=== PATIENT | female | born 1955 | race Caucasian/White ===

== ENCOUNTER 2021-06-03 03:13 | Emergency (ER) | payer MEDICARE, OTHER, SELFPAY ==
[2021-06-03 03:21] VITALS: BP 154/77; PULSE 82; RESP 18; TEMP 36.6; O2SAT 100
--- NOTE | 2021-06-03 04:07 | ED.WOUNDLAC ---
HPI - Wound/Laceration General Chief Complaint: Wound/Laceration Stated Complaint: infected flea bites Time Seen by Provider: 06/03/21 03:23 History of Present Illness HPI narrative: Patient is a 66-year-old female who presents ER with concern for infected bug bite. Patient's dog had fleas and has been treated. They then bit her legs. She developed redness around several areas of her calves. She had a blister in her right calf that has popped and since started to heal. She has developed leg to the left lower mercer she is concerned it may be infected. No fevers or chills or sweats. Nontender but has mild pruritus. Related Data Home Medications Medication Instructions Recorded Confirmed triamcinolone acetonide applic TOPICAL 06/03/21 Allergies Allergy/AdvReac Type Severity Reaction Status Date / Time penicillin G Allergy Mild Unknown Verified 06/03/21 03:55 amoxicillin Allergy Unknown Unknown Verified 06/03/21 03:55 cephalexin Allergy Unknown Unknown Verified 06/03/21 03:55 clarithromycin Allergy Unknown Unknown Verified 06/03/21 03:55 erythromycin base Allergy Unknown Unknown Verified 06/03/21 03:55 Penicillins Allergy Unknown Unknown Verified 06/03/21 03:55 tetracycline Allergy Unknown Unknown Verified 06/03/21 03:55 CEPHALEXIN MONOHYDRATE Allergy Mild Unknown Uncoded 06/03/21 03:55 CILLINS Allergy Mild Unknown Uncoded 06/03/21 03:55 MYCINS Allergy Mild Unknown Uncoded 06/03/21 03:55 Review of Systems Constitutional: Constitutional: Denies chills, Denies fever(s) and Denies weakness Musculoskeletal: Musculoskeletal: Denies joint swelling and Denies muscle cramps Integumentary/Breasts: Skin/Breast: Reports pruritus, Reports erythema and Reports rash PMFSH Past Medical History Medical History (Updated 06/03/21 @ 04:26 by Kilo Medina MD) Healthy female adult Surgical History Surgical History (Updated 06/03/21 @ 04:26 by Kilo Medina MD) History of repair of hiatal hernia Family History Family History (Updated 04/13/10 @ 10:51 by DOCTOR UNKNOWN) Other Diabetes mellitus Family history of arthritis Hypertension Social History Social History Smoking status: Never smoker Alcohol intake: never Gender identity (if verbalized by the patient): Female Sexual Orientation (if Verbalized by the Patient): Straight or Heterosexual Exam Narrative: GENERAL: Well-appearing, well-nourished, and in no acute distress. HEAD: Normocephalic, atraumatic. EXTREMITIES: Normal range of motion. No edema. SKIN: Warm, dry. Dermatitis from bug bites in bilateral lower extremities. Left lower extremity with a bullae that is slightly larger than 1 cm without pus or cellulitis sandpaperlike rash NEURO: Alert and oriented x3. PSYCH: Normal mood and affect. Course Course Emergency Course: Discussed treatment plan. Discharge home. Vital Signs Vital signs: Vital Signs Temperature 97.8 F 06/03/21 03:21 Pulse Rate 82 06/03/21 03:21 Respiratory Rate 18 06/03/21 03:21 Blood Pressure 154/77 H 06/03/21 03:21 Pulse Oximetry 100 06/03/21 03:21 Temperature 97.8 F 06/03/21 03:21 Pulse Rate 82 06/03/21 03:21 Respiratory Rate 18 06/03/21 03:21 Blood Pressure 154/77 H 06/03/21 03:21 Pulse Oximetry 100 06/03/21 03:21 Discharge Plan Discharge Clinical Impression: Bullous eruption, localized Patient Disposition: Home, Self-Care Condition: Stable Instructions: Antibiotic Form, Insect Bite or Sting (ED) Additional Instructions: You are having a reaction to a bug bite that is formed a blister/bullae. Continue to use the steroids prescribed by your primary care physician. Return the ER if you have fever over 100.4 ?F, you have severe pain in your leg, or have additional concerns. Prescriptions: No Action triamcinolone acetonide 0.1 % cream TOPICAL RF: 0 Follow-up/Referrals: PHYSICIAN NOT ON STAFF,NONSTAFF [Primary Care Provider] - 1 Week
== END 2021-06-03 04:18 | disposition home or self-care (01) ==
PROVIDERS: Emergency Provider Emergency Medicine
DX: S80.861A Insect bite (nonvenomous), right lower leg, initial encounter (principal); L14 Bullous disorders in diseases classified elsewhere; W57.XXXA Bitten or stung by nonvenomous insect and other nonvenomous arthropods, initial encounter
CPT/HCPCS: 99282

== ENCOUNTER 2021-06-24 14:02 | Emergency (ER) | payer MEDICARE, OTHER, SELFPAY ==
[2021-06-24 14:26] VITALS: BP 122/68; PULSE 97; RESP 16; TEMP 36.8; O2SAT 98
[2021-06-24 15:39] VITALS: BP 122/68; PULSE 97; RESP 18; TEMP 36.7; O2SAT 98
--- NOTE | 2021-06-24 17:02 | ED.GENADULT ---
HPI - General Adult General Chief complaint: Wound/Laceration Stated complaint: right arm wound Time Seen by Provider: 06/24/21 15:54 Source: patient Mode of arrival: ambulatory Limitations: no limitations History of Present Illness HPI narrative: Patient presents with chief complaint of suspected foreign body to right forearm. Patient states that she was out working in the yard and gardening which she is and she believes a piece is inserted still under her skin. Patient reports she has been trying to pick at the area without success. Patient reports rash around the area with itching. Patient denies any other injuries or concerns Related Data Home Medications Medication Instructions Recorded Confirmed triamcinolone acetonide applic TOPICAL 06/03/21 Allergies Allergy/AdvReac Type Severity Reaction Status Date / Time penicillin G Allergy Mild Unknown Verified 06/03/21 03:55 amoxicillin Allergy Unknown Unknown Verified 06/03/21 03:55 cephalexin Allergy Unknown Unknown Verified 06/03/21 03:55 clarithromycin Allergy Unknown Unknown Verified 06/03/21 03:55 erythromycin base Allergy Unknown Unknown Verified 06/03/21 03:55 Penicillins Allergy Unknown Unknown Verified 06/03/21 03:55 tetracycline Allergy Unknown Unknown Verified 06/03/21 03:55 CEPHALEXIN MONOHYDRATE Allergy Mild Unknown Uncoded 06/03/21 03:55 CILLINS Allergy Mild Unknown Uncoded 06/03/21 03:55 MYCINS Allergy Mild Unknown Uncoded 06/03/21 03:55 Review of Systems Review of Systems: CONSTITUTIONAL: Denies fever, chills, or sweats. EYES: Denies visual changes, redness, or discharge. ENT: Denies rhinorrhea, congestion, sore throat, or otalgia. CARDIOVASCULAR: Denies chest pain, palpitations, or edema. RESPIRATORY: Denies cough or dyspnea. GASTROINTESTINAL: Denies abdominal pain, nausea, vomiting, or diarrhea. GENITOURINARY: Denies dysuria or hematuria. SKIN: Reports rash and suspected foreign body. MUSCULOSKELETAL: Denies back pain, joint pain, or myalgia. NEUROLOGIC: Denies headache, numbness, dizziness, or weakness. PSYCHIATRIC: Denies anxiety or depression. [facility] Past Medical History Medical History (Updated 06/24/21 @ 17:27 by Apoorva Millan PA-C) Healthy female adult Surgical History Surgical History (Updated 06/03/21 @ 04:26 by Kilo Medina MD) History of repair of hiatal hernia Family History Family History (Updated 04/13/10 @ 10:51 by DOCTOR UNKNOWN) Other Diabetes mellitus Family history of arthritis Hypertension Social History Social History Smoking status: Never smoker Alcohol intake: never Gender identity (if verbalized by the patient): Female Sexual Orientation (if Verbalized by the Patient): Straight or Heterosexual Exam Narrative: GENERAL: Well-appearing, well-nourished, and in no acute distress. HEAD: Normocephalic, atraumatic. EYES: PERRLA and EOMI. CHEST: Clear to auscultation. No respiratory distress. No wheezes rales or rhonchi EXTREMITIES: Normal range of motion. No edema. SKIN: Warm, dry, no rash. NEURO: No focal deficits. Alert and oriented x3. PSYCH: Normal mood and affect. Course Vital Signs Vital signs: Vital Signs Temperature 98.3 F 06/24/21 14:26 Pulse Rate 97 06/24/21 14:26 Respiratory Rate 16 06/24/21 14:26 Blood Pressure 122/68 06/24/21 14:26 Pulse Oximetry 98 06/24/21 14:26 Temperature 98.0 F 06/24/21 15:39 Pulse Rate 97 06/24/21 15:39 Respiratory Rate 18 06/24/21 15:39 Blood Pressure 122/68 06/24/21 15:39 Pulse Oximetry 98 06/24/21 15:39 Procedures Foreign Body Removal Foreign Body #1: Site: right and upper extremity Description of foreign body: other (folliage) Sedation/Analgesia: other (lidocaine 1ml) Technique: incision made to facilitate removal Confirmed by:: direct visualization Complications: none Post-procedure exam: awake, alert Foreign Body Removal Narrative: folliage was
[2021-06-24] MEDS: LIDOCAINE/EPINEPHRINE 0.5%/1:200,000 50 ML VIAL (17:20)
== END 2021-06-24 18:01 | disposition home or self-care (01) ==
PROVIDERS: Emergency Provider Emergency Medicine
DX: S50.851A Superficial foreign body of right forearm, initial encounter (principal); W45.8XXA Other foreign body or object entering through skin, initial encounter; Y93.H2 Activity, gardening and landscaping
CPT/HCPCS: 10120; 99282

== ENCOUNTER 2025-05-26 17:31 | Emergency (ER) | payer MEDICARE, SELFPAY ==
--- NOTE | ~2025-05-26 | XR_ITS ---
EXAM: XR wrist LT min 3V DATE: 05/26/2025 17:59 HISTORY: fall . COMPARISON: None available. FINDINGS: Normal mineralization. No fracture or dislocation. No lytic or blastic lesion. Mild scatte red degenerative change. No erosion or periosteal change. Soft tissues within normal limits. IMPRESSION: No acute osseous finding in the left wrist. Reviewed, dictated and finalized at location K.
--- NOTE | ~2025-05-26 | XR_ITS ---
EXAM: XR knee RT min 4V DATE: 05/26/2025 17:59 HISTORY: fall . COMPARISON: 06/27/2010. FINDINGS: Osteopenia. No fracture or dislocation. No lytic or blastic lesion. Moderate degenerative change in the right knee. No erosion or periosteal change. Soft tissues within normal limits. IMPRESSION: No acute osseous finding in the right knee. Reviewed, dictated and finalized at location K.
--- OUTSIDE RECORDS SUMMARY | 2025-05-26 17:33 | XMS_ITS | Continuity of Care Document ---
Author Organization [facility] Address [address] [place] [address] [address] [place] [address] Phone Care Team Providers Care Straddle Bug Operator Name Role Phone Brooks OD, Alfredo Unavailable Unavailable Procedures Procedure Date Contact Lens Hydrophilic, Spherical [facility] Medical Contact Lens/es Other Type [facility] [employer] Eye Exam & Treatment Refraction CL Replacement - Vist[employer] Disp W/BW Soft [facility] Medical CL Replacement - Vistak[employer] Disp W/BW Soft [facility] Eye Exam & Treatment Refraction Office/outpatient Visit, Est Eye Exam Established Pt CL Replacement - [employer] Disp W/BW Soft [facility] Medical Eye Exam & Treatment Refraction CL Replacement - Vistak[employer] Disp W/BW Soft [facility] Advance Directives Directive Yes / No Effective Date File Name No Information Encounters Encounter Description Practice Location Reason(s) For Visit Diagnoses Date Provider Providers Copied on Encounter [facility], [address] [place] [address] [address], [place], [place], [id number], [place] tel:[phone] [facility] No Information 2-201 0 Brooks OD Alfredo. [address] , [address], [place], [address], [place]. tel:[phone] [facility], [address] [place] [address] [address], [place], [place], [id number], [place] tel:[phone] [facility] [place] No Information Dec-0 1-200 9 Brooks OD Alfredo. [address] [facility] , [address], [place], [place], [facility], [place]. tel:[phone] [facility], [address] [place] [address] [address], [place], [place], [id number], [place] tel:[phone] [facility] No Information Nov-0 3-200 9 Brooks OD Alfredo. [address] , [address], [place], [place], [facility], [place]. tel:[phone] [facility], [address] [place] [address] [address], [place], [place], [id number], [place] tel:[phone] [facility] [place] No Information May-0 1-200 9 Brooks OD Alfredo. [address] , [address], [place], [place], [facility], [place]. tel:[phone] [facility], [address] [place] [address] [address], [place], [place], [id number], [place] tel:[phone] [facility] No Information Oct-3 0-200 8 Brooks OD Alfredo. [address] [facility] , [address], [place], [facility], [place]. tel:[phone] [facility], [address] [place] [address] [address], [place], [place], [id number], [place] tel:[phone] [facility] [place] No Information Oct-2 1-200 8 Brooks OD Alfredo. [address] [facility] , [address], [place], [address], [place]. tel:[phone] Office/outpat ient Visit, Est [facility], [address] [place] [address] [address], [place], [place], [id number], [place] tel:[phone] [facility] [place] No Information Oct-2 0-200 7 Brooks OD Alfredo. [facility] , [address], [place], [place], [facility], . tel:[phone] [facility], [address] [place] [address] [address], [place], [place], [id number], tel:[phone] [facility] [place] No Information Oct-0 8-200 7 Doisy Edward. [facility] , [address], [place], [facility], [place]. tel:[phone] [facility], [address] [place] [address] [address], [place], [place], [id number], tel:[phone] [facility] No Information Oct-0 4-200 7 Brooks OD Alfredo. [facility] , [address], [place], [facility], [place]. tel:[phone] [facility], [address] [place] [address] [address], [place], [place], [id number], [place] tel:[phone] [facility] No Information Sep-2 4-200 7 Brooks OD Alfredo. [facility] , [address], [place], [address], . tel:[phone] [facility], [address] [place] [address] [address], [place], [place], [id number], tel:[phone] [facility] [place] No Information Latrell-0 8-200 7 Brooks OD Alfredo. [address] [place], [place] [address]ate [place] , [address], [place], [address], . tel:[phone] Family History Family Member Type Diagnosis Age At Onset No Information Payers Payer name Insurance type Covered constitution party ID Authoriza tion(s) No Information Social History Type Description Quantity Date Captured Comments Sex Female Smoking Status No Information Chief Complaint And Reason For Visit No Information Reason For Referral Reason For Referral No Information History Of Present Illness Encounter Date Complaint History Of Prese nt Illness No Information Functional Status Date Functional Assessmen t No Information Instructions Date Instruction Additional Infor mation No Information Assessments Type Assessment Date No Information Patient Care Teams Name Effective Dates (start - stop) Status Members No Information
--- OUTSIDE RECORDS SUMMARY | 2025-05-26 17:33 | XMS_ITS | Clinical Summary ---
Author Organization [facility] [address] Address [address] [place] [address] Care Team Providers Care Laboratory Technical Specialist Name Role Phone Jacquelyn Hernández MD Unavailable [phone] Tremayne Cross MD Primary Care Provider [phone] Source Comments [facility],non-owned Affiliates and Associated Physician Practices is amultiple site organization consisting of ambulatory clinics and hospital sitesin [place], [place], [place] and [place]. This disclosure is being madepursuant to the Care Everywhere program and may not contain all information available regarding this patient. Last updated 18.[facility] Allergies Active Allergy Reactions Criticality Noted Date Comments Clarithromycin Vomiting 03/04/2017 Cephalexin Rash Medium Erythromycin 03/04/2017 Penicillins Urticaria Medium 03/04/2017 Tetracycline 06/06/2017 Medications * Be aware that medications may not be up to date on this document. Alwaysverify current medications with the patient. ibuprofen (ADVIL) 200 MG capsule Take 200 mg by mouth 4 times daily as needed for Pain Active Acetaminophen (TYLENOL) 325 MG CAPS Active estradiol (ESTRACE VAGINAL) 0.1 MG/GM vaginal creamIndication s:Vulvovaginal Atrophy Apply 1 gram vaginally at bedtime for 21 days, then transition to twice weekly use. 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); Vaginal atrophy 03/23/2025 Travel 03/18/2025 Telephone [facility] [address] [place] [address] [place] [phone] Babak Bravo MD Reminder Call (03/23/25 appt) from Last 3 Months Family History Medical History Relation Name Comments CAD (Coronary Artery Disease) Father Diabetes - Type 2 Father Hypertension Father CVA Mother Diabetes - Type 2 Mother High Cholesterol Mother Hypertension Mother Osteoporosis Mother Relation Name Status Comments Father Mother Social History Tobacco Use Types Packs/Day Years Used Date Smoking Tobacco: Never Smokeless Tobacco: Never Tobacco Cessation:Counseling Given: Not Answered Alcohol Use Standard Drinks/Week Comments Not Currently 0 (1 standard drink = 0.6 oz pur e alcohol) PHQ-2 Answer Date Recorded Patient Health Questionnaire-2 Score 0 04/13/2025 Comments No Sex and Gender Information Value Date Recorded Sex Assigned at Not on file Legal Sex Female 3:22 PM CDT Gender Identity Not on file Sexual Orientation Not on file Last Filed Vital Signs Vital Sign Reading Time Taken Comments Blood Pressure 132/70 04/13/2025 1:10 PM CDT Pulse 78 12/23/2019 9:02 AM CDT Temperature 36.9 C (98.5 F) 12/23/2019 9:02 AM CDT Respiratory Rate 17 12/23/2019 9:02 AM CDT Oxygen Saturation 98% 12/23/2019 9:02 AM CDT Inhaled Oxygen Concentration - - Weight 69.9 kg (154 lb) 04/13/2025 1:10 PM CDT Height 157.5 cm (5' 2) 04/13/2025 1:10 PM CDT Body Mass Index 28.17 04/13/2025 1:10 PM CDT Plan of Treatment Upcoming Encounters Date Type Department Care Team (Late st Contact Info) Description 10/19/2025 10:45 AM GAMING DIRECTOR Office Visit [facility] [address] [place] [address] Babak Bravo MD [address] [facility] [address] [place] [address] Health Maintenance Due Date Last Done Comments BONE DENSITY TESTING 1954 COLOGUARD (AGES 45-75) - COLON CA SCREENING 1954 COLON MONITORING 1954 COLONOSCOPY - COLON CA SCREENING 1954 CT COLONOGRAPHY - COLON CA SCREENING 1954 Colorectal Cancer Screening 1954 FIT - COLON CA SCREENING 1954 FLEX SIG - COLON CA SCREENING 1954 LIPID TESTING 1954 MAMMOGRAM 1954 HEPATITIS C SCREENING 03/31/1972 DTAP/TDAP/TD VACCINES (1 - Tdap) 1973 PNEUMOCOCCAL VACCINE 50+ (1 of 1 - PCV) 2004 ZOSTER VACCINE (1 of 2) 2004 MEDICARE AWV CALENDAR YEAR 2024 COVID-19 VACCINE ( season) 2025 08/27/2024, 08/22/2022, 05/01/2022, Additional history exists SCREENING FOR DIABETES 03/23/2025 INFLUENZA VACCINE (#1) 2025 , 10/18/2023, 08/22/2022, Additional history exists Respiratory Syncytial Virus (RSV) Vaccine Pt: or over 60 yrs (1 - 1-dose 75+ series) 2029 DEPRESSION SCREENING Completed 03/23/2025 HEPATITIS B VACCINE Aged Out No longe r eligible based on patient's age to complete this topic HIB VACCINE Aged Out No longer eligi ble based on patient's age to complete this topic HPV VACCINE Aged Out No longer eligi ble based on patient's age to complete this topic MENINGOCOCCAL (Group B) VACCINE SHARED DECISION-MAKING Aged Out No longer eligible based on patient's age to complete this topic MENINGOCOCCAL GROUPS A/C/Y/W VACCINE Aged Out No longer eligible based on patient's age to complete this topic Insurance MEDICARE [facility] MANAGED MEDICARE ADV [facility] MANAGED MEDICARE ADV Care Teams Laboratory Technical Specialist Relationship Specialty Start Date End Date Tremayne Cross MD [address] [place] [address] [address] [place] [phone] PCP - General Internal Medicine 03/23/25 Jacquelyn Hernández MD [address] [place] [address] Family Medicine 06/06/17
[2025-05-26 17:41] VITALS: BP 145/88; PULSE 89; RESP 16; TEMP 36.1; O2SAT 97
--- NOTE | 2025-05-26 22:05 | ED_ITS ---
HPI - Fall General Chief Complaint: Fall Stated Complaint: fall, L wrist and R knee pain Time Seen by Provider: 05/26/25 21:46 Source: patient Mode of arrival: ambulatory Limitations: no limitations History of Present Illness HPI Narrative: Patient is a 70-year-old female who presents the ED with report of a fall. Patient reports she tripped and fell forward, attempting to catch herself with her arms. She landed onto her right knee. Complains of pain to her right knee and left wrist. Is able to ambulate, but has pain with this. Has not taken anything for pain. Denies any head injury or LOC. Denies numbness. Denies neck or back pain. Related Data Home Medications ?Medication ?Instructions ?Recorded ?Confirmed ?Last Taken ?Type No Home Medications 05/23/23 05/23/23 Unknown History Allergies Allergy/AdvReac Type Severity Reaction Status Date / Time penicillin G Allergy Mild Unknown Verified 05/26/25 17:42 amoxicillin Allergy Unknown Unknown Verified 05/26/25 17:42 cephalexin Allergy Unknown Unknown Verified 05/26/25 17:42 clarithromycin Allergy Unknown Unknown Verified 05/26/25 17:42 erythromycin base Allergy Unknown Unknown Verified 05/26/25 17:42 Penicillins Allergy Unknown Unknown Verified 05/26/25 17:42 tetracycline Allergy Unknown Unknown Verified 05/26/25 17:42 CEPHALEXIN MONOHYDRATE Allergy Mild Unknown Uncoded 05/26/25 17:42 CILLINS Allergy Mild Unknown Uncoded 05/26/25 17:42 MYCINS Allergy Mild Unknown Uncoded 05/26/25 17:42 Review of Systems Review of Systems: All systems reviewed & are unremarkable except as noted in HPI. All systems reviewed & are unremarkable except as noted in HPI and below PMFSH Past Medical History Medical History GERD (gastroesophageal reflux disease) Allergies Lipid screening Encounter for other general examination Breast screening Impacted cerumen of left ear Healthy female adult Surgical History Surgical History H/O cataract removal with insertion of prosthetic lens (~2005) and 2016 H/O oral surgery (~1994) History of hysterectomy (~1991) History of repair of hiatal hernia Family History Family History Father Asthma Diabetes mellitus Heart disease Hypertension Mother Diabetes mellitus Grandparent Hypertension Cancer Other Family history of arthritis Social History Social History Social History: Caffeine- soda/tea Smoking status: Never smoker Alcohol intake: never Substance use: never Substance use type: does not use Lack of Transportation: YES Lack of Food: Never True Current Housing: I Have Housing Concerned About Future Housing: No Difficulty Paying Gas/Electric Bills: No Difficulty Paying for Meds: No Currently Unemployed: No Education: Master's Degree or Higher Difficulty w/ Childcare or Family Care: No Living arrangements: alone Gender identity (if verbalized by the patient): Female Sexual Orientation (if Verbalized by the Patient): Straight or Heterosexual Exam Narrative: GENERAL: Well appearing, well-nourished, non-toxic, in no acute distress. HEAD: Normocephalic, atraumatic. RESPIRATORY: Airway patent, respirations nonlabored. CARDIOVASCULAR: Regular rate and rhythm without murmurs, rubs, or gallops. Peripheral pulses intact and easily palpable. MUSCULOSKELETAL: Moves all extremities. No gross deformities. Mild tenderness palpation over L distal ulnar region, L carpal bones. Mild TTP over R lateral anterior knee. No significant swelling or bruising. Sensation intact. No calf tenderness or swelling. SKIN: Warm, dry, normal color. NEURO: A&O X3. Speech clear. Cranial nerves II-XII grossly intact. Steady gait. No ataxic movements. PSYCHIATRIC: Appropriate mood and affect. Normal interaction. Course Vital Signs Vital signs: Vital Signs Temperature 97.0 F L 05/26/25 17:41 Pulse Rate 89 05/26/25 17:41 Respiratory Rate 16 05/26/25 17:41 Blood Pressure 145/88 H 05/26/25 17:41 Pulse Oximetry 97 05/26/25 17:41 Temperature 97.0 F L 05/26/25 17:41 Pulse Rate 89 05/26/25 17:41 Respiratory Rate 16 05/26/25 17:41 Blood Pressure 145/88 H 05/26/25 17:41 Pulse Oximetry 97 05/26/25 17:41 MDM - Fall MDM Narrative Medical decision making narrative: Patient presented to ED status post ground level mechanical fall, pain to left wrist, right knee. Denies head injury or LOC. Denies any other areas of pain. Neurovascularly intact. Vital signs are stable. Patient in no acute distress. X-ray of left wrist and right knee both negative for acute fracture. No joint effusion. Patient updated on imaging results, likelihood of wrist/knee sprain. Bobby bandage for right knee. Discussed rice therapy, strict return precautions. Declined pain medication in the ED. patient safe for discharge home. Discharged in stable condition. Medical Records Attestation: I reviewed the patient's medical records. Imaging Data Attestation: I personally reviewed and interpreted this imaging study as follows: Radiologist's impression: ITS Impressions Knee X-Ray 05/26/25 18:21 IMPRESSION: No acute osseous finding in the right knee. Wrist X-Ray 05/26/25 18:24 IMPRESSION: No acute osseous finding in the left wrist. Discharge Plan Discharge Clinical Impression: Fall from ground level Strain of left wrist Qualifiers: Encounter type: initial encounter Qualified Code(s): S66.912A - Strain of unspecified muscle, fascia and tendon at wrist and hand level, left hand, initial encounter Sprain of right knee Qualifiers: Encounter type: initial encounter Involved ligament of knee: unspecified ligament Qualified Code(s): S83.91XA - Sprain of unspecified site of right knee, initial encounter Patient Disposition: Home Condition: Stable Instructions: Antibiotic Form, Knee Sprain (ED), P.R.I.C.E. Treatment (ED), Wrist Sprain (ED) Additional Instructions: Recommend rest, ice to areas pain, elevation of extremities. Recommend Tylenol/ibuprofen as needed for pain. Bobby bandage for compression and support. Follow-up with your primary care doctor for further evaluation if needed. Return to the ED if you experience worsening or severe pain, recurrent fall or injury, numbness, severe swelling, or any other symptoms of concern. Patient Language: South [place]ese Prescriptions: No Action No Home Medications Follow-up/Referrals: PHYSICIAN NOT ON STAFF,NONSTAFF [Primary Care Provider] - Time of Disposition: 22:07
--- OUTSIDE RECORDS SUMMARY | 2025-05-26 22:57 | XMS_ITS | Clinical Summary ---
Author Organization [facility] Address [address] [place] [address] Care Team Providers Care Water Resource Project Manager Name Role Phone Jacquelyn Hernández MD Unavailable [phone] Tremayne Cross MD Primary Care Provider [phone] Source Comments [facility],non-owned Affiliates and Associated Physician Practices is amultiple site organization consisting of ambulatory clinics and hospital sitesin [place], [place], [place] and [place]. This disclosure is being madepursuant to the Care Everywhere program and may not contain all information available regarding this patient. 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); Vaginal atrophy 03/23/2025 Travel 03/18/2025 Telephone [facility] [address] [place] [address] [place] [phone] Babak Bravo MD Reminder Call (03/23/25 appt) [...] st Contact Info) Description 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 Office Visit [facility] [address] [place] [address] Babak Bravo MD [address] [place] [address] Health Maintenance Due Date Last [...] Insurance MEDICARE [facility] MANAGED MEDICARE ADV [facility] MANAGED MEDICARE ADV Care Teams Water Resource Project Manager Relationship Specialty Start Date End Date Tremayne Cross MD [address] [place] [address] [address] [place] [address] PCP - General Internal Medicine 03/23/25 Jacquelyn Hernández MD [address] [place] [address] Family Medicine 06/06/17
--- OUTSIDE RECORDS SUMMARY | 2025-05-26 22:57 | XMS_ITS | Continuity of Care Document ---
Author Organization [facility] Address [address] [place] [address] [address] [place] [address] Phone Care Team Providers Care Cold Mill Inspector Name Role Phone Brooks OD, Alfredo Unavailable Unavailable Procedures Procedure Date Contact Lens Hydrophilic, Spherical [facility] Medical Contact Lens/es Other Type [facility] [employer] Eye Exam & Treatment Refraction CL Replacement - [facility] Disp W/BW Soft [facility] Medical CL Replacement - [facility] Disp W/BW Soft [facility] Eye Exam & Treatment Refraction Office/outpatient Visit, Est Eye Exam Established Pt CL Replacement - Vistak[employer] Disp W/BW Soft [facility] Medical Eye Exam & Treatment Refraction CL Replacement - Vistak[employer] Disp W/BW Soft [facility] Medical Advance Directives Directive Yes / No Effective Date File Name No Information Encounters Encounter Description Practice Location Reason(s) For Visit Diagnoses Date Provider Providers Copied on Encounter [facility], [address] [place] [address] [address], [place], [place], [id number], [place] tel:[phone] SEC [facility] No Information 2-201 0 Brooks OD Alfredo. [address] , [address], [place], [address], [place]. tel:[phone] [facility], [address] [place] [address] [address], [place], [place], [id number], [place] tel:[phone] [facility] [place] No Information Dec-0 1-200 9 Brooks OD Alfredo. [address] , [address], [place], [place], [facility], [place]. tel:[phone] [facility], [address] [place] [address] [address], [place], [place], [id number], [place] tel:[phone] [facility] No Information Nov-0 3-200 9 Brooks OD Alfredo. [address] , [address], [place], [place], [facility], [place]. tel:[phone] [facility], [address] [place] [address] [address], [place], [place], [id number], [place] tel:[phone] [facility] [place] No Information May-0 1-200 9 Brooks OD Alfredo. [address] , [address], [place], [place], [facility], [place]. tel:[phone] [facility], [address] [place] [address] [address], [place], [place], [id number], [place] tel:[phone] [facility] No Information Oct-3 0-200 8 Brooks OD Alfredo. [address] , [address], [place], [place], [facility], [place]. tel:[phone] [facility], [address] [place] [address] [address], [place], [place], [id number], [place] tel:[phone] [facility] [place] No Information Oct-2 1-200 8 Brooks OD Alfredo. [address] , [address], [place], [address], [place]. tel:[phone] Office/outpat ient Visit, Est [facility], [address] [place] [address] [address], [place], [place], [id number], [place] tel:[phone] SEC [facility] [place] No Information Oct-2 0-200 7 Brooks OD Alfredo. [facility] [address] , [address], [place], [place], [facility], . tel:[phone] [facility], [address] [place] [address] [address], [place], [place], [id number], tel:[phone] SEC [facility] [place] No Information Oct-0 8-200 7 Doisy Edward. [facility] [address] , [address], [place], [place], [facility], [place]. tel:[phone] [facility], [address] [place] [address] [address], [place], [place], [id number], tel:[phone] [facility] No Information Oct-0 4-200 7 Brooks OD Alfredo. [facility] , [address], [place], [facility], [place]. tel:[phone] [facility], [address] [place] [address] [address], [place], [place], [id number], [place] tel:[phone] [facility] No Information Sep-2 4-200 7 Brooks OD Alfredo. [facility] [address] , [address], [place], [address], . tel:[phone] [facility], [address] [place] [address] [address], [place], [place], [id number], tel:[phone] SEC [facility] [place] No Information Latrell-0 8-200 7 Brooks OD Alfredo. [address] [place], [place] [address]ate [place] , [address], [place], [address], . tel:[phone] Family History Family Member Type Diagnosis Age At Onset No Information Payers Payer name Insurance type Covered green party ID Authoriza tion(s) No Information Social [...]
== END 2025-05-26 23:01 | disposition home or self-care (01) ==
LOC: ANHED 22:55
PROVIDERS: Emergency Provider Physician Assistant
DX: S66.912A Strain of unspecified muscle, fascia and tendon at wrist and hand level, left hand, initial encounter (principal); S83.91XA Sprain of unspecified site of right knee, initial encounter; W01.0XXA Fall on same level from slipping, tripping and stumbling without subsequent striking against object, initial encounter; K21.9 Gastro-esophageal reflux disease without esophagitis
CPT/HCPCS: 73110; 73564; 99284

== ENCOUNTER 2025-08-26 09:13 | Outpatient (CLI) | payer MEDICARE, SELFPAY ==
--- OUTSIDE RECORDS SUMMARY | 2025-08-26 09:38 | XMS_ITS | Clinical Summary ---
Author Organization [facility] Address [address] [place] [address] Care Team Providers Care Deckhand Engineer Name Role Phone Jacquelyn Hernández MD Unavailable [phone] Tremayne Cross MD Primary Care Provider [phone] Source Comments [facility],non-owned Affiliates and Associated Physician Practices is amultiple site organization consisting of ambulatory clinics and hospital sitesin [place], [place], [place] and [place]. This disclosure is being madepursuant to the Care Everywhere program and may not contain all information available regarding this patient. 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 [place] [address] Babak Bravo MD [address] [place] [address] Health Maintenance Due Date Last [...] 2) 2004 MEDICARE AWV CALENDAR YEAR 2024 SCREENING FOR DIABETES 03/23/2025 COVID-19 VACCINE ( season) 2025 08/27/2024, 08/22/2022, 05/01/2022, Additional history exists INFLUENZA VACCINE (#1) 2025 , 10/18/2023, 08/22/2022, [...] age to complete this topic Insurance MEDICARE [facility] MANAGED MEDICARE ADV MANAGED MEDICARE ADV Care Teams Deckhand Engineer Relationship Specialty Start Date End Date Tremayne Cross MD [address] [place] [address] [place] [address] PCP - General Internal Medicine 03/23/25 Jacquelyn Hernández MD [address] [place] [address] Family Medicine 06/06/17
== END 2025-08-26 09:14 | disposition home or self-care (01) ==
LOC: ANHAUDIO 09:13
PROVIDERS: Visit Provider Otolaryngology
DX: H90.3 Sensorineural hearing loss, bilateral (principal)
CPT/HCPCS: 92557; 92567